=== PATIENT | male | born 1945 | race Caucasian/White ===

== ENCOUNTER → 2017-12-06 | Outpatient (CLI) | payer MEDICARE, OTHER ==
[~2017-12-06] MED LIST: GLUC500 PO; LOSHYD PO; Multivitamin1 EAC1 PO; OMEG1CAP30 PO
== END | disposition home or self-care (01) ==
LOC: LAB 16:54 → LAB SHORT 16:54
DX: R30.0 Dysuria (principal)
CPT/HCPCS: 87077; 87086; 87186

== ENCOUNTER → 2022-01-04 | Outpatient (CLI) | payer MEDICARE, OTHER | END | disposition home or self-care (01) | LOC: LAB SHORT 15:03 → LAB 15:03 | DX: L08.9 Local infection of the skin and subcutaneous tissue, unspecified (principal) | CPT/HCPCS: 87070; 87075; 87205 ==